=== PATIENT | female | born 1940 | race Caucasian/White ===

== ENCOUNTER 2023-10-10 06:31 | Day surgery (SDC) | payer MEDICARE ==
[~2023-10-10 06:31] MED LIST: LIDOCAINE 1% (10MG/ML) FOR IV START INTRADERMA PRN; TETRACAINE 0.5% OPHTH (PF) DROPS 4 ML BTL OP PRN
[2023-10-10] MEDS: IV FLUID CONTINUATION 1,000 ML IV ONE (07:18)
[2023-10-10 07:20] VITALS: RESP 16; TEMP 97.8
[2023-10-10] MEDS: LACTATED RINGERS 1,000 ML IV SCH (07:23)
[2023-10-10] MEDS: CYCLOPENTOLATE 1% OPHTH SOLN 2 ML BTL OP PRN (07:32)
[2023-10-10] MEDS: PHENYLEPHRINE 2.5% OPHTH DRP 2ML OP PRN (07:35)
[2023-10-10] MEDS ORDERED: MIDAZOLAM 2 MG/2 ML VIAL ONE (08:07)
[2023-10-10] MEDS ORDERED: fentaNYL (PF) 50 MCG/ML 2 ML AMP ONE (08:07)
[2023-10-10] MEDS: MOXIFLOXACIN HCL 0.5% DROPS 3 ML BTL OP PRN (08:20)
[2023-10-10] MEDS: DUOVISC KIT (GREEN BOX) INTRAOCULA ONE (08:20)
[2023-10-10] MEDS: LIDOCAINE 1% (PF) 10MG/ML VIAL MISCELLANE ONE (08:20)
[2023-10-10] MEDS: TIMOLOL 0.5% OPHTH DROPS 5 ML BTL OP PRN (08:20)
[2023-10-10] MEDS: BALANCED SALT IRRIG SOLN COMB2 15 ML IRRIG.SOLN INTRAOCULA ONE (08:20)
[2023-10-10] MEDS: EPINEPHrine (PF) 0.3 ML in BALANCED SALT IRRIG SOLN COMB2 500 ML IRRIGATION ONE (08:21)
[2023-10-10] MEDS: TRYPAN BLUE 0.06% SYRINGE 0.5 ML SYRINGE MISCELLANE ONE (08:28)
--- NOTE | 2023-10-10 08:48 | P.OP ---
Date of Procedure: 10/10/23 Preoperative Diagnosis: NS & CS & PSC & POAG moderate Postoperative Diagnosis: same Procedure(s) Performed: PIOL, & goniotomy OS Implants: MX60 23.00 Anesthesia: MAC Surgeon: Justin Soares Pathology: none sent Condition: stable Disposition: same day Indications for Procedure: blurry vision and poor glaucoma control Operative Findings: no complications
[2023-10-10 09:14] VITALS: BP 142/64; PULSE 49
--- NOTE | 2023-10-17 15:15 | OP ---
OPERATIVE REPORT DATE OF SERVICE : 10/10/2023 PROCEDURE PERFORMED: Phacoemulsification of cataract and intraocular lens implant of the left eye with goniotomy of the left eye. PREOPERATIVE DIAGNOSES: Nuclear sclerosis, cortical sclerosis, posterior subcapsular cataract, and primary open- angle glaucoma, moderate stage, left eye. POSTOPERATIVE DIAGNOSES: Nuclear sclerosis, cortical sclerosis, posterior subcapsular cataract, and primary open- angle glaucoma, moderate stage, left eye. ANESTHESIA: Topical. ESTIMATED BLOOD LOSS: Less than 5 mL. SPECIMEN TAKEN: None. NARRATIVE: After obtaining the appropriate consent, the patient was brought to the operating room, there she was placed under cardiac monitoring, prepped and draped in the usual sterile manner. She was approached from her left temporal side at the 5 o'clock position. An MVR blade was used to create a paracentesis port. Through this opening, 1% Xylocaine MPF 50:50 mix with balanced salt solution was injected into the anterior chamber. This was followed by Trypan blue, which was allowed to dwell in the eye for approximately 90 seconds. This was irrigated away and replaced with Viscoat. At the 3 o'clock position, a 2.5 mm keratome was used to create a self-sealing corneal flap incision. A small amount of viscoelastic was placed on the patient's cornea. The patient was asked to rotate her head to her right and maintain a gaze in the same general direction. A gonioprism was placed on the patient's eye and identification of the trabecular meshwork was easily made with the Trypan blue. A [place] goniotomy knife was passed across the anterior chamber and using a koko and meet method approximately 4-1/2 clock hours of trabecular meshwork was removed without difficulty. The patient was then asked to rotate back to the normal supine position and it was noted at this point in time that there was a moderate release of blood from the anterior chamber angle. Release of posterior synechiae was accomplished using a cyclodialysis spatula. The synechiae extended approximately from 3 o'clock to 8 o'clock on the patient's lens. This released without any significant problems to the anterior capsule of the lens or the iris. However, the iris did not appear to have much resilience and assumed a more rounded shape. Once the synechiae were released, a cystotome was introduced into the anterior chamber to begin a continuous tear capsulorrhexis, which was then completed using the Utrata forceps. Hydrodissection and hydrodelineation of the lens were accomplished with balanced salt solution. Phacoemulsification of the lens utilizing phacochop was accomplished in 13.21 seconds at 13.9% power. Additional Xylocaine MPF was instilled into the anterior chamber. This was followed by removal of the remaining cortical material under irrigation and aspiration as well as careful polishing of the posterior capsule in the capsule vacuum mode. Provisc was then used to stabilize the capsular bag and a [employer] MX60E 23.0 diopter posterior chamber intraocular lens was then inserted into the capsular bag without difficulty. At this stage of the procedure, a remnant of trabecular meshwork was identified in the nasal area of the eye and using Utrata forceps, the remnant of the trabecular meshwork was removed from the anterior angle. Once this was completed, irrigation, aspiration in and around the intraocular lens as well as the anterior chamber was accomplished. The eye was then brought to a higher than normal intra-ocular pressure through the paracentesis port during which examination of the incisions were confirmed watertight. This was also confirmed using a fluorescein strip. The patient then received 2 drops of 0.5% timolol followed by 2 drops of 0.5% moxifloxacin. She was then lightly patched and shielded in the usual manner. There were no complications from the procedure. She tolerated the procedure well and was returned to outpatient recovery in good condition. MMBRETTL / IJN: [id number] /
== END 2023-10-10 09:41 | disposition home or self-care (01) ==
LOC: OR 06:31
PROVIDERS: ATTEND Ophthalmology
DX: H25.12 Age-related nuclear cataract, left eye (principal); H25.012 Cortical age-related cataract, left eye; H40.1122 Primary open-angle glaucoma, left eye, moderate stage; H54.40 Blindness, one eye, unspecified eye; I10 Essential (primary) hypertension; G70.00 Myasthenia gravis without (acute) exacerbation; Z79.899 Other long term (current) drug therapy